=== PATIENT | female | born 2000 | race Hispanic/Latino ===

== ENCOUNTER 2022-05-20 15:27 | Emergency (ER) | payer BC ==
[~2022-05-20] VITALS: Ht 160 cm; Wt 72.7 kg
[2022-05-20 15:28] VITALS: BP 119/55
== END 2022-05-20 18:33 | disposition home or self-care (01) ==
LOC: M ED 15:27
DX: S93.492A Sprain of other ligament of left ankle, initial encounter (principal); X50.0XXA Overexertion from strenuous movement or load, initial encounter; Y92.838 Other recreation area as the place of occurrence of the external cause; F17.290 Nicotine dependence, other tobacco product, uncomplicated